=== PATIENT | female | born 1955 | race Caucasian/White ===

== ENCOUNTER 2024-01-18 14:15 | Outpatient (CLI) | payer MEDICARE, SELFPAY ==
--- NOTE | ~2024-01-18 | MR_ITS ---
EXAMINATION: MR cervical spine wo con DATE: 01/18/2024 15:00 INDICATION: Radiculopathy, cervical region. Neck pain radiating down the left arm. TECHNIQUE: Magnetic resonance imaging (MRI) of the cervical spine was performed without intravenous c ontrast. COMPARISON: Cervical spine radiographs 01/18/2024 FINDINGS: There is mild kyphosis of lower cervical spine. Vertebral body heights are normal. There is mildly decreased disc height at C4-C5 and moderately decreased disc height at C5-C6 and C6-C7. The s joseph cord signal intensity is normal. The following disc levels are specifically discussed: C2-C3: The disc does not extend beyond the endplate margin. There is no uncovertebral joint osteoarth ritis. There is moderate right and severe left facet joint osteoarthritis. There is no neural foramin al stenosis. There is no central canal stenosis. C3-C4: The disc does not extend beyond the endplate margin. There is no uncovertebral joint osteoarth ritis. There is severe bilateral facet joint osteoarthritis. There is mild left neural foraminal sten osis. There is no central canal stenosis. C4-C5: The disc does not extend beyond the endplate margin. There is mild bilateral uncovertebral lisa nt osteoarthritis. There is severe bilateral facet joint osteoarthritis. There is mild bilateral neur al foraminal stenosis. There is mild central canal stenosis. C5-C6: The disc is bulging. There is severe bilateral uncovertebral joint osteoarthritis. There is se adonay bilateral facet joint osteoarthritis. There is mild right and moderate left neural foraminal uriel nosis. There is mild central canal stenosis. C6-C7: The disc is bulging with superimposed right central extrusion. There is moderate bilateral unc overtebral joint osteoarthritis. There is severe bilateral facet joint osteoarthritis. There is mild bilateral neural foraminal stenosis. There is mild central canal stenosis. C7-T1: The disc does not extend beyond the endplate margin. There is no uncovertebral joint osteoarth ritis. There is mild bilateral facet joint osteoarthritis. There is no neural foraminal stenosis. The re is no central canal stenosis. IMPRESSION: 1. Moderate cervical spondylosis. Reviewed, dictated and finalized at location A.
--- NOTE | ~2024-01-18 | XR_ITS ---
EXAMINATION: XR cervical spine 4-5V DATE: 01/18/2024 14:28 INDICATION: Radiculopathy, cervical region. Chronic neck pain. TECHNIQUE: 5 views of cervical spine including flexion and extension views were obtained. COMPARISON: None. FINDINGS: There is mild kyphosis of lower cervical spine. There is 5 degrees dextrocurvature of cervi cothoracic spine. Vertebral body heights are normal. There is mildly decreased disc height at C4-C5 a nd moderately decreased disc height at C5-C6 and C6-C7. The spine is hypomobile with flexion and exte nsion. There is multilevel facet joint osteoarthritis, severe at multiple levels. There is mild centr al canal stenosis at C4-C5 and C6-C7. No prevertebral soft tissue swelling. IMPRESSION: 1. Moderate cervical spondylosis. Reviewed, dictated and finalized at location A.
== END 2024-01-18 14:16 | disposition home or self-care (01) ==
LOC: GOSHIMG 14:15
PROVIDERS: PCP Internal Medicine Infectious Disease; Visit Provider Neurological Surgery
DX: M47.22 Other spondylosis with radiculopathy, cervical region (principal)
CPT/HCPCS: 72050; 72141